=== PATIENT | female | born 1950 | race Caucasian/White ===

== ENCOUNTER → 2019-01-04 | Outpatient (CLI) | payer MEDICARE ==
[~2019-01-04] MED LIST: IOPAMIDOL 370 MG/ML 200 ML INFUS..BTL INJ ONE; SODIUM CHLORIDE 0.9% 100 ML 100 ML ONE; SODIUM CHLORIDE 0.9% 50ML 50 ML ONE
[2019-01-04 10:55] LABS: BLOOD UREA NITROGEN 21 mg/dL (7-26); BUN/CREATININE RATIO 26 (6-25); EST GLOMERULAR FILTRATION RATE > 60 ML/MIN (60-)
--- NOTE | 2019-01-04 13:40 | Diagnostic Imaging Report ---
CT/CTA abdomen, pelvis, and lower extremities, with contrast. History: Peripheral vascular disease. Comparison: <None available>. Technique: Multidetector CT scanning of the abdomen, pelvis and bilateral lower extremities was performed from the level of the iliac crests to the feet, after intravenous administration of contrast. Coronal and sagittal multiplanar, MIP, and 3-D volume-rendering reformations were obtained. Discussion: LUNG BASES: The heart is enlarged. Lung bases are clear. ABDOMEN: The liver is enlarged measuring over 19 cm in length. There is no focal hepatic abnormality. There is mild right hydronephrosis and dilatation of the proximal right ureter with a 9 mm stone seen in the proximal right ureter at the level of L5-S1. Multiple additional subcentimeter stones are present within both kidneys. There is no hydronephrosis on the left. The gallbladder, biliary tree, spleen, pancreas, and adrenal glands are normal. The hepatic vein, portal vein, and splenic vein are patent. There is no bowel dilatation. There is no evidence of adenopathy or free fluid. PELVIS: The bladder and uterus are unremarkable. The ovaries are not visible. There is no evidence of free fluid or adenopathy. BONES AND SOFT TISSUES: Advanced degenerative changes are present throughout the lumbar spine without evidence of lytic or sclerotic lesion. Abdominal and pelvic vessels: The abdominal aorta is mildly calcified without evidence of focal stenosis or aneurysm. Celiac trunk, SMA, AVIS, and single renal arteries are patent bilaterally. Bilateral common, external, and internal iliac arteries are patent. Right lower extremity: Right common femoral and profundus femoral arteries are patent. Atherosclerotic plaque is present throughout the SFA and popliteal artery with several areas of [id number]-it-guluxglr narrowing in the proximal SFA. There is a patent trifurcation with both anterior and posterior tibial arteries supply to the foot. Left lower extremity: Left common femoral and profundus femoral arteries are patent. Atherosclerotic plaque is present throughout the SFA and popliteal artery with several areas of [id number] narrowing in the proximal and mid SFA. There is a patent trifurcation but the posterior tibial artery occludes in the mid leg. Anterior tibial artery reaches the foot. IMPRESSION: 1. Moderate atherosclerotic disease in both lower extremities, left worse than right, with three-vessel runoff on the right and 2 vessel runoff on the left. 2. 9 mm right proximal ureteral stone causing mild right hydronephrosis. Additional subcentimeter stones are present in both kidneys. This unexpected finding was discussed with Dr. Masterson at 1330 on 01/04/2019. 3. Hepatomegaly. Signed by: Blaise De La Cruz on 01/04/2019 1:37 PM
== END ==
LOC: CT 09:51
PROVIDERS: ATTEND Internal Medicine Interventional Cardiology
DX: I73.9 Peripheral vascular disease, unspecified (principal)
CPT/HCPCS: 36415; 75635; 82565; 84520; Q9967